=== PATIENT | male | born 1970 ===

== ENCOUNTER 2024-12-05 09:00 | Outpatient (CLI) | payer OTHER ==
[~2024-12-05] VITALS: Ht 177.8 cm; Wt 108.9 kg
[2024-12-05] MEDS: LORazepam 2MG/ML-1ML VIAL ONE (10:07)
[2024-12-05] MEDS: LORazepam 2MG/ML-1ML VIAL IV ONE (10:10)
== END 2024-12-05 17:00 | disposition home or self-care (01) ==
LOC: Rad HDHVI 09:00
PROVIDERS: ATTEND Internal Medicine Cardiovascular Disease
DX: I49.3 Ventricular premature depolarization (principal); R00.0 Tachycardia, unspecified; I70.0 Atherosclerosis of aorta; R06.02 Shortness of breath; J45.909 Unspecified asthma, uncomplicated; Z13.6 Encounter for screening for cardiovascular disorders
CPT/HCPCS: 78452; 93017; A9500; J2060; 96374

== ENCOUNTER 2024-12-12 08:55 | Outpatient (CLI) | payer OTHER ==
--- NOTE | 2024-12-13 12:16 | DVHSR ---
APPROVED REPORT EXAM: Two-dimensional and M-mode echocardiogram with Doppler and color Doppler. DIMENSIONS LVDd4.1 (3.8-5.7cm)LA (2D)4.0 (1.9-4.0cm)Aortic Root3.3 (2.0-3.7cm) LVDs2.6 (2.5-4.0cm)LA (MM) (1.9-4.0cm)Aortic Cusp Exc2.2 (1.5-2.0cm) EF (%) 68.2 (55-70%)Rt. Atrium3.3 (1.9-4.0cm)Asc. Aorta cm IVSd1.1 (0.7-1.1cm)RV (D)3.4 (1.8-2.4cm) PWd1.1 (0.7-1.1cm) Mitral Valve MitralMitral Stenosis E wave0.80m/sMV Mean GR.mmHg A wave0.85m/sMV Peak GR.mmHg E/A ratio0.92D MVAcm2 DECEL [id number] 1/2 [place] Aortic Valve Aortic ValveAortic Stenosis V11.24m/Rafael Mean GR.5mmHg V21.51m/Rafael Peak GR.9mmHg Pulmonic Valve V20.85m/s Tricuspid Valve TR Velocity2.38m/s [id number] LEFT VENTRICLE The Ejection Fraction is >55%. ATRIA The left atrial size is normal. The right atrium size is normal. MITRAL VALVE The mitral valve is normal in structure and function. There is no mitral valve regurgitation noted. PULMONIC VALVE The pulmonic valve is not well visualized. TRICUSPID VALVE The tricuspid valve is grossly normal. AORTIC VALVE The aortic valve opens well. There is trace aortic regurgitation. GREAT VESSELS The aortic root is normal size. PERICARDIAL EFFUSION There is no pericardial effusion. Conclusion EF >55%
== END 2024-12-12 17:00 | disposition home or self-care (01) ==
LOC: Rad HDHVI 08:55
PROVIDERS: ATTEND Internal Medicine Cardiovascular Disease
DX: I70.0 Atherosclerosis of aorta (principal); R60.9 Edema, unspecified
CPT/HCPCS: 93306